=== PATIENT | male | born 1990 | race Caucasian/White ===

== ENCOUNTER 2017-07-14 19:00 | Emergency (ER) | payer OTHER ==
[~2017-07-14] VITALS: Ht 182.9 cm; Wt 93.6 kg
[~2017-07-14 19:00] MED LIST: ZOFRAN ODT8 MG PO
[2017-07-14] MEDS ORDERED: VALIUM5 MG PO (22:47)
[2017-07-14] MEDS ORDERED: MOTRIN800 MG PO (22:47)
[2017-07-14] MEDS ORDERED: NORCO 7.5/321 TABLET PO (22:47)
[2017-07-14] MEDS ORDERED: ANTIVERT25 MG PO (22:51)
[2017-07-14 23:03] VITALS: BP 130/88
== END 2017-07-14 23:04 | disposition home or self-care (01) ==
LOC: EXP 19:00 → EME 19:00 → EXP 23:04
DX: S06.0X9A Concussion with loss of consciousness of unspecified duration, initial encounter (principal); S01.01XA Laceration without foreign body of scalp, initial encounter; S29.012A Strain of muscle and tendon of back wall of thorax, initial encounter; M54.2 Cervicalgia; V44.5XXA Car driver injured in collision with heavy transport vehicle or bus in traffic accident, initial encounter; Y92.410 Unspecified street and highway as the place of occurrence of the external cause; F17.200 Nicotine dependence, unspecified, uncomplicated
CPT/HCPCS: 70450; 72125; 72128; 99281; 99284

== ENCOUNTER 2017-07-20 13:09 | Emergency (ER) | payer OTHER ==
[~2017-07-20] VITALS: Ht 182.9 cm; Wt 92.1 kg
[~2017-07-20 13:09] MED LIST changes: +ANTIVERT25 MG PO; +MOTRIN800 MG PO; +NORCO 7.5/321 TABLET PO; +VALIUM5 MG PO
[2017-07-20] MEDS ORDERED: MOTRIN600 MG PO (15:32)
[2017-07-20] MEDS ORDERED: ROBAXIN750 MG PO (15:32)
[2017-07-20 16:04] VITALS: BP 128/74
== END 2017-07-20 16:04 | disposition home or self-care (01) ==
LOC: EME 13:09
DX: M54.9 Dorsalgia, unspecified (principal); R51 Headache; M54.2 Cervicalgia; S06.0X0D Concussion without loss of consciousness, subsequent encounter; S01.01XD Laceration without foreign body of scalp, subsequent encounter; V49.9XXD Car occupant (driver) (passenger) injured in unspecified traffic accident, subsequent encounter; F17.200 Nicotine dependence, unspecified, uncomplicated
CPT/HCPCS: 99281; 99283

== ENCOUNTER 2017-07-23 15:34 | Emergency (ER) | payer OTHER ==
[~2017-07-23] VITALS: Ht 172.7 cm
[~2017-07-23 15:34] MED LIST changes: +MOTRIN600 MG PO; +ROBAXIN750 MG PO
[2017-07-23 16:04] LABS: BASOPHIL (%) 0.3 % (0-1); EOSINOPHIL (%) 0.5 % (0-5); EOSINOPHIL COUNT 0.1 K/uL (0-0.3); IMMATURE GRANULOCYTE (%) 0.2 % (0.0-0.7); LYMPHOCYTE (%) 21.8 % (15-42); LYMPHOCYTE COUNT 2.1 K/uL (1.0-2.8); MCH 30.2 PG (29.0-34.0); MCHC 34.1 G/DL (30.0-36.0); MCV 88.7 FL (86-99); MONOCYTE (%) 11.5 % (3-12); MONOCYTE COUNT 1.1 K/uL (0-0.8); NEUTROPHIL (%) 65.7 % (45-76); NEUTROPHIL COUNT 6.4 K/uL (1.8-6.4); PLATELET COUNT 195 K/uL (156-360); RBC DIS.WIDTH-CV 12.2 % (11.8-14.6); RBC DIS.WIDTH-SD 39.8 % (39-53); RED BLOOD COUNT 4.96 M/uL (4.00-5.50); WHITE BLOOD COUNT 9.8 K/uL (4.1-10.2)
[2017-07-23 16:14] LABS: CHLORIDE 105 mEq/L (99-109); POTASSIUM 3.8 mEq/L (3.7-5.4); SODIUM 140 mEq/L (136-147)
[2017-07-23 16:15] LABS: GLUCOSE 125 mg/dL (70-99)
[2017-07-23 16:18] LABS: SERUM ETHYL ALCOHOL < 10 mg/dL
[2017-07-23 16:19] LABS: CREATININE 0.9 mg/dL (0.6-1.3); GFR ESTIMATE (CALCULATED) > 59 mL/min/ (58.99-99999)
[2017-07-23 16:20] LABS: UREA NITROGEN (BUN) 16 mg/dL (9-23)
[2017-07-23 16:24] VITALS: BP 148/108
== END 2017-07-23 16:25 | disposition left against medical advice (07) ==
LOC: EME 15:34
PROVIDERS: Emergency Medicine
DX: T40.1X1A Poisoning by heroin, accidental (unintentional), initial encounter (principal); Z53.21 Procedure and treatment not carried out due to patient leaving prior to being seen by health care provider; F17.200 Nicotine dependence, unspecified, uncomplicated
CPT/HCPCS: 80048; 81003; 85025; G0480; J2310